=== PATIENT | male | born 1960 | race Caucasian/White ===

== ENCOUNTER 2017-11-24 19:41 | Emergency (ER) | payer OTHER ==
[~2017-11-24] VITALS: Ht 167.6 cm; Wt 82.6 kg
[2017-11-24] MEDS ORDERED: NKM (19:53)
[2017-11-24 20:30] VITALS: BP 147/96
[2017-11-24 20:35] VITALS: BP 133/87
[2017-11-24 20:40] VITALS: BP 134/84
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
[2017-11-24] MEDS ORDERED: METHOCARBAMOL500 MG ORAL (21:23)
[2017-11-24] MEDS ORDERED: IBUPROFEN600 MG ORAL (21:23)
[2017-11-24 21:47] VITALS: BP 134/84
--- NOTE | 2017-11-25 09:34 | Diagnostic Imaging Report ---
Indication: Neck Pain Findings: 3 views of the cervical spine were obtained. C5-6 C6-7 demonstrate endplate spurs and narrowed intervertebral discs. Bones are osteopenic. There is no fracture definitely identified. There is irregularity involving the anterior arch of C1 which may be due to advanced arthrosis. Consider evaluation with CT but this does not appear traumatic. The open-mouth view shows good alignment of the lateral masses of C1 with the body of C2. The dens appears intact. IMPRESSION: No acute injury appreciated. Hypertrophy bone involving the anterior arch of C1. Arthrosis suspected. 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
== END 2017-11-24 21:47 | disposition home or self-care (01) ==
LOC: EMR 20:21
DX: S16.1XXA Strain of muscle, fascia and tendon at neck level, initial encounter (principal); X50.9XXA Other and unspecified overexertion or strenuous movements or postures, initial encounter; Y92.89 Other specified places as the place of occurrence of the external cause; M50.322 Other cervical disc degeneration at C5-C6 level; Z85.6 Personal history of leukemia; Z88.2 Allergy status to sulfonamides
CPT/HCPCS: 72040; 99284